=== PATIENT | male | born 1965 | race Caucasian/White ===

== ENCOUNTER → 2017-05-13 | Day surgery (SDC) | payer MEDICAID ==
[2017-05-06 10:58] VITALS: BMI 40.6
[~2017-05-13] MED LIST: Ciprofloxacin 400mg/200ml D5W 400 MG/200 ML BAG IVPB ONE; Lactated Ringer's 500 ML IV ONE; Lidocaine 2% Jelly (Uro-Jet) ONE; Midazolam 2 MG/2 ML VIAL ONE; Oxycodone/Acetaminophen 5/325 mg Tab PO ONE; Propofol 10 mg/ml Inj (20 ML) ONE
[2017-05-13 06:34] VITALS: O2SAT 100
[2017-05-13] MEDS: Gentamicin 160 MG in Sodium Chloride 0.9% 100 ML IVPB ONE ×2 (08:18→08:20)
--- NOTE | 2017-05-13 08:34 | PCM.SURG1 ---
Surgeon's Initial Post Op Note - Surgeon's Notes Surgeon: diana Promotion Specialist: cecily Type of Anesthesia: General LMA Anesthesia Administered By: staff Pre-Operative Diagnosis: BPH/Elevated psa Operative Findings: same Post-Operative Diagnosis: same Operation Performed: cysto/prostate bx/us guidance Specimen/Specimens Removed: prostate bx 12 core Estimated Blood Loss: EBL {In ML}: 0 Blood Products Given: N/A Drains Used: No Drains Post-Op Condition: Good Date of Surgery/Procedure: 05/13/17 Time of Surgery/Procedure: 08:34
--- NOTE | 2017-05-13 14:11 | OP ---
PROCEDURE DATE: 05/13/2017 PREOPERATIVE DIAGNOSIS: Benign prostatic hypertrophy and elevated prostate-specific antigen. POSTOPERATIVE DIAGNOSIS: Benign prostatic hypertrophy and elevated prostate-specific antigen. PROCEDURE: Transrectal prostate biopsy, ultrasound guidance and cystoscopy and panendoscopy. DESCRIPTION OF PROCEDURE: As follows, prior to the procedure, the patient was asked to sign the detailed informed consent. He was informed of all the risks and complications of prostate biopsy, prostate ultrasound and cystoscopy as well as the alternative ways for managing elevated PSA. He signed the consent, agree to accept these risks and complication. He was brought into the room and a time-out was taken according to the rules and regulations of [facility]. The patient was draped and prepped in the usual manner. He received Betadine enema in addition to IV antibiotics. He was then subjected to transrectal ultrasonography. Once an adequate image of the prostate was taken, the biopsy guide was used to take 12 core biopsies in a similar fashion. No rectal bleeding occurred. The patient was then re-draped and prepped for the cystoscope and 21 Storz panendoscope. The pendulous and membranous urethras were normal. The prostatic urethra shows trilobar hypertrophy with significant outlet obstruction and a small medial lobe. Based on the above findings, the biopsy is negative, the patient is candidate for GreenLight laser prostatectomy. Followup in our office will be arranged and the patient was given a prescription for Cipro and detailed postoperative instructions. Diego Kumar MD
[2017-05-13 14:25] VITALS: BP 148/86; PULSE 71; RESP 16; TEMP 97.5
== END | disposition home or self-care (01) ==
LOC: C.SDS 05:44
PROVIDERS: ATTEND Urology
DX: N40.1 Benign prostatic hyperplasia with lower urinary tract symptoms (principal); R97.20 Elevated prostate specific antigen [PSA]
CPT/HCPCS: 52000; 55700; 88305; J0744; J1580; J7120